=== PATIENT | male | born 1985 | race Caucasian/White ===

== ENCOUNTER 2017-05-26 18:18 | Emergency (ER) | payer MEDICAID ==
--- NOTE | 2017-05-26 18:41 | ER Document Report ---
ED Medical Screen (RME) - General Chief Complaint: Syncope Stated Complaint: FALL/VOMITING Time Seen by Provider: 05/26/17 18:30 Notes: RME DISCLOSURE I have seen this patient as part of a Rapid Medical Evaluation and, if applicable, placed any initially appropriate orders. The patient will be seen and fully evaluated, including a full history and physical exam, by a provider ( in Main ED or Fast Track) when a room becomes available. 31M here w c/o L sided OJEDA that started sometime today (pt cannot tell me as he cannot remember), worse w light and sound, has not tried anything for pain, feels "out of it and confused". Denies numbness tingling incontinence or retention fevers IV drug use. He denies alcohol and illicit drugs. He does not take blood thinners and has no prior history of aneurysms. He does not remember if he may have had any head trauma today. EXAM Lethargic appearing but arouses to verbal Pinpoint pupils Strength 5/5 with intact sensation all extremities TRAVEL OUTSIDE OF THE [place] IN LAST 30 DAYS: No - Related Data Allergies/Adverse Reactions: No Known Allergies Allergy (Verified 05/26/17 18:21) Past Medical History - Social History Frequency of alcohol use: Social Pulmonary Medical History: Denies: Hx Asthma, Hx Bronchitis, Hx Pneumonia Renal/ Medical History: Denies: Hx Peritoneal Dialysis - Immunizations Hx Diphtheria, Pertussis, Tetanus Vaccination: Yes - unsure of tetanus Physical Exam - Vital signs Vitals: Temp Pulse Resp BP Pulse Ox 97.4 F 77 16 130/76 H 90 L 05/26/17 18:26 05/26/17 18:26 05/26/17 18:26 05/26/17 18:26 05/26/17 18:26 Course - Vital Signs Vital signs: Temp Pulse Resp BP Pulse Ox 97.4 F 77 16 130/76 H 90 L 05/26/17 18:26 05/26/17 18:26 05/26/17 18:26 05/26/17 18:26 05/26/17 18:26
--- NOTE | 2017-05-26 18:58 | RADIOLOGY REPORT (SQ) ---
EXAM DESCRIPTION: CT HEAD WITHOUT COMPLETED DATE/TIME: 05/26/2017 6:45 pm REASON FOR STUDY: OJEDA syncope vomiting lethargic; eval head bleed COMPARISON: None. TECHNIQUE: Axial images acquired through the brain without intravenous contrast. Images reviewed wi th bone, brain and subdural windows. Images stored on PACS. All CT scanners at this facility use dose modulation, iterative reconstruction, and/or weight based d osing when appropriate to reduce radiation dose to as low as reasonably achievable (ALARA). [facility]: Dose Right [facility]: CareDose [facility]: Dose Right [facility]: Teradose 4D [facility]: Smart Navarik RADIATION DOSE: CT Rad equipment meets quality standard of care and radiation dose reduction techniq ues were employed. CTDIvol: 64.6 mGy. DLP: 1034 mGy-cm. mGy. LIMITATIONS: None. FINDINGS: VENTRICLES: Normal size and contour. CEREBRUM: No masses. No hemorrhage. No midline shift. No evidence for acute infarction. Normal gra y/white matter differentiation. No areas of low density in the white matter. CEREBELLUM: No masses. No hemorrhage. No alteration of density. No evidence for acute infarction. EXTRAAXIAL SPACES: No fluid collections. No masses. ORBITS AND GLOBE: No intra- or extraconal masses. Normal contour of globe without masses. CALVARIUM: No fracture. PARANASAL SINUSES: There are mild mucoperiosteal changes in some of the ethmoid air cells. SOFT TISSUES: No mass or hematoma. OTHER: No other significant finding. IMPRESSION: There is mild ethmoid disease with no acute intracranial imaging findings. EVIDENCE OF ACUTE STROKE: NO. COMMENT: Quality ID # [id number]: Final reports with documentation of one or more dose reduction techniques (e.g., Automated exposure control, adjustment of the mA and/or kV according to patient size, use of iterative reconstruction technique) TECHNICAL DOCUMENTATION: JOB ID: [id number] [email or web address] All Rights Reserved Reading location - IP/workstation name: [email or web address]
[2017-05-26] MEDS ORDERED: NORMAL SALINE 1000 ML 1,000 ML IV ONE (19:15)
[2017-05-26] MEDS ORDERED: ONDANSETRON HCL INJ/PF 4 MG/2 ML SDV IV ONE (19:15)
--- NOTE | 2017-05-26 19:17 | ER Document Report ---
ED General - General Chief Complaint: Syncope Stated Complaint: FALL/VOMITING Time Seen by Provider: 05/26/17 18:30 Notes: Patient is a 31-year-old male comes emergency department for chief complaint of possible head injury, fall, headache, and vomiting. Patient states he vomited 3 times. Patient states his brought him and told him he needed to come, he states he does not exactly remember what happened. He denies alcohol, denies any recreational drugs, denies any daily medications except for currently taking penicillin for his teeth. He states he had a bad headache when he got here but now it is almost gone, he states he just feels tired. He denies any surgeries or medical history. TRAVEL OUTSIDE OF THE [place] IN LAST 30 DAYS: No - Related Data Allergies/Adverse Reactions: No Known Allergies Allergy (Verified 05/26/17 18:21) Past Medical History - General Information source: Patient - Social History Smoking Status: Current Every Day Smoker Frequency of alcohol use: Social Family History: Reviewed & Not Pertinent Patient has suicidal ideation: No Patient has homicidal ideation: No Pulmonary Medical History: Denies: Hx Asthma, Hx Bronchitis, Hx Pneumonia Renal/ Medical History: Denies: Hx Peritoneal Dialysis - Immunizations Hx Diphtheria, Pertussis, Tetanus Vaccination: Yes - unsure of tetanus Review of Systems - Review of Systems Constitutional: See HPI EENT: No symptoms reported Cardiovascular: No symptoms reported Respiratory: No symptoms reported Gastrointestinal: See HPI Genitourinary: No symptoms reported Male Genitourinary: No symptoms reported Musculoskeletal: No symptoms reported Skin: No symptoms reported Hematologic/Lymphatic: No symptoms reported Neurological/Psychological: No symptoms reported Physical Exam - Vital signs Vitals: Temp Pulse Resp BP Pulse Ox 97.4 F 77 16 130/76 H 90 L 05/26/17 18:26 05/26/17 18:26 05/26/17 18:26 05/26/17 18:26 05/26/17 18:26 - General General appearance: Lethargic In distress: None - HEENT Head: Normocephalic, Atraumatic Eyes: Normal Conjunctiva: Normal Extraocular movements intact: Yes Eyelashes: Normal Pupils: PERRL Nasal: Normal Mouth/Lips: Normal Mucous membranes: Normal Pharynx: Normal Neck: Normal - Respiratory Respiratory status: No respiratory distress. No: Labored, Tachypnea Breath sounds: Normal. No: Decreased air movement, Wheezing - Cardiovascular Rhythm: Regular. No: Tachycardia Heart sounds: Normal auscultation, S1 appreciated, S2 appreciated - Abdominal Inspection: Normal Tenderness: Nontender. No: Tender - Back Back: Normal, Nontender - Extremities General upper extremity: Other - Old track patel on the arms, no obvious new areas. Normal upper extremity exam otherwise General lower extremity: Normal inspection, Nontender, Normal strength, Normal temperature. No: Edema - Neurological Neuro grossly intact: Yes Cognition: Normal Orientation: Disoriented to events. 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 No: Aggressive, Agitated, Angry, Anxious - Skin Skin Temperature: Warm Skin Moisture: Dry Skin Color: Normal Course - Re-evaluation Re-evalutation: 05/26/17 came to bedside. She states that she heard patient fall in the next room, she went and found him on the floor she states he was still responding but he was slurring his words and difficult to understand and she became concerned and called EMS. She denies any vomiting or noting any other abnormalities. Vital signs unremarkable including no fever, tachycardia, hypotension, or hypoxia. Rechecked initial hypoxia which was stated to be 90%, this is 90% on room air. CAT scan of the head is unremarkable. I attempted to place an IV because nursing staff is having difficulty, however patient has not cooperative, he complains and moves making IV placement difficult although I was able to obtain blood. Giving Zofran and p.o. fluids instead. 05/26/17 21:15 Despite multiple attempts at blood chemistry hemolyzed. CBC was obtained, shows leukocytosis with elevation of neutrophils but no bandemia. No anemia. Patient currently on penicillin for dental infection but I do not see an abscess on examination, no Jairo's, patient is actually alert and walking around the room now, he states feels much better after the Zofran, he has been drinking fluids, he states he feels great he wants to go home. His color is better, he is more alert, he ambulates without any difficulty, he has no neurological deficits, the CAT scan of the head is normal. I did discuss lumbar puncture because of leukocytosis, headache, passing out, however this was declined. Patient states he does not have a headache anymore. 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 Presentation is suggestive of opiate abuse, although patient denies this patient was reminded that this is potentially life-threatening and he should avoid opiates. Patient not homicidal or suicidal. Because CAT scan of the head, chest x-ray, monitoring does not show any concerning a normality's, vital signs are normal, patient will be discharged home on his request at this time. I did discuss return precautions in detail, primary care follow-up, and return precautions. Patient and at bedside state understanding and agreement. - Vital Signs Vital signs: Temp Pulse Resp BP Pulse Ox 97.4 F 85 16 130/76 H 98 05/26/17 18:26 05/26/17 18:35 05/26/17 18:26 05/26/17 18:26 05/26/17 18:35 - Laboratory Result Diagrams: 05/26/17 19:50 05/26/17 19:50 Laboratory results interpreted by me: 05/26/17 19:50 WBC 19.2 H Plt Count 453 H Seg Neuts % (Manual) 90 H Lymphocytes % (Manual) 5 L Abs Neuts (Manual) 17.3 H Discharge - Discharge Clinical Impression: Episode of syncope Qualifiers: Syncope type: unspecified Qualified Code(s): R55 - Syncope and collapse Condition: Stable Disposition: HOME, SELF-CARE Additional Instructions: The CAT scan of your head, chest x-ray, and your evaluation do not show any concerning abnormalities. You have declined additional workup. The exact cause of your episode of syncope is uncertain at this time. Stay well-nourished and well-hydrated, avoid recreational drugs, and follow-up closely with primary care for additional evaluation. See referral. Return if you worsen in anyway including returned or severe headache, confusion , 100.4 or greater, or any other concerning or worsening symptoms. Forms: Return to Work Referrals: KENROY HOLLY MD [ACTIVE STAFF] - Follow up in 3-5 days
[2017-05-26] MEDS ORDERED: ONDANSETRON 4 MG TAB.RAPDIS PO ONE (20:02)
[2017-05-26 20:15] LABS: MEAN CORPUSCULAR HEMOGLOBIN 30.5 pg (27.0-33.4); MEAN CORPUSCULAR HGB CONC 35.7 g/dL (32.0-36.0); MEAN CORPUSCULAR VOLUME 86 fl (80-97); PLATELET COUNT 453 10^3/uL (150-450); RED CELL DISTRIBUTION WIDTH 13.4 % (11.5-14.0); WHITE BLOOD COUNT 19.2 10^3/uL (4.0-10.5)
[2017-05-26 20:35] LABS: ABSOLUTE NEUTROPHILS# (MANUAL) 17.3 10^3/uL (1.7-8.2); BASOPHILS % (MANUAL) 0 % (0-2); EOSINOPHILS % (MANUAL) 0 % (0-6); LYMPHOCYTES % (MANUAL) 5 % (13-45); MONOCYTES % (MANUAL) 5 % (3-13); SEGMENTED NEUTROPHILS % (MAN) 90 % (42-78); TOTAL CELLS COUNTED 100; TOXIC GRANULATION SLIGHT
[2017-05-26 20:36] LABS: PLATELET COMMENT INCREASED
--- NOTE | 2017-05-26 21:14 | RADIOLOGY REPORT (SQ) ---
EXAM DESCRIPTION: CHEST SINGLE VIEW COMPLETED DATE/TIME: 05/26/2017 8:59 pm REASON FOR STUDY: initial hypoxia, leukocytosis COMPARISON: 03/23/2013 EXAM PARAMETERS: NUMBER OF VIEWS: One view. TECHNIQUE: Single frontal radiographic view of the chest acquired. RADIATION DOSE: NA LIMITATIONS: None. FINDINGS: LUNGS AND PLEURA: No acute opacities, masses or pneumothorax. No pleural effusion. MEDIASTINUM AND HILAR STRUCTURES: No masses. Contour normal. HEART AND VASCULAR STRUCTURES: Heart normal in size. Normal vasculature. BONES: No acute findings. HARDWARE: None in the chest. OTHER: No other significant finding. IMPRESSION: NO ACUTE RADIOGRAPHIC FINDING IN THE CHEST. TECHNICAL DOCUMENTATION: JOB ID: [id number] [email or web address] All Rights Reserved Reading location - IP/workstation name: [email or web address]
[2017-05-26] MEDS ORDERED: ONDANSETRON ODT 4 MG TAB (6 TAB/ER DISP) PO PRN (21:21)
[2017-05-26 21:34] VITALS: BP 123/85
== END 2017-05-26 21:38 | disposition home or self-care (01) ==
LOC: ER 18:18
DX: R55 Syncope and collapse (principal); R11.10 Vomiting, unspecified; R51 Headache; W19.XXXA Unspecified fall, initial encounter; F17.200 Nicotine dependence, unspecified, uncomplicated
CPT/HCPCS: 99284; 36415; 85025; 71045; 70450; S0119

== ENCOUNTER 2018-11-22 21:02 | Emergency (ER) | payer MEDICAID ==
[2018-11-22] MEDS ORDERED: LIDOCAINE 1%/EPINEPHRINE INJ 20 ML VIAL INJ ONE (21:14)
[2018-11-22 21:15] VITALS: BP 116/91
--- NOTE | 2018-11-22 21:24 | ER Document Report ---
ED Skin Rash/Insect Bite/Abscs - General Stated Complaint: POSSIBLE RASH Time Seen by Provider: 11/22/18 21:04 Primary Care Provider: STONEY BOCANEGRA DO [NO LOCAL MD] - Follow up as needed Notes: Patient is a 32-year-old male that comes emergency department for chief complaint of an abscess over the top of the left hand. He states that he noticed this almost a week ago, it became larger, he has been draining intermittently but it has not resolved. He denies spreading redness, fever/chills, nausea/vomiting. He does admit to heroin abuse. Patient also states that he has a lot of bumps on his neck that had hens like pimples at first and he scratched on these off but these have not resolved either. He denies any other complaints including chest pain, shortness of breath. He denies any prescribed daily medications or diagnosed medical problems. TRAVEL OUTSIDE OF THE [place] IN LAST 30 DAYS: No - Related Data Allergies/Adverse Reactions: No Known Allergies Allergy (Verified 11/22/18 21:41) Past Medical History - General Information source: Patient - Social History Smoking Status: Current Every Day Smoker Drug Abuse: Heroin Lives with: Alone Family History: Reviewed & Not Pertinent Pulmonary Medical History: Denies: Hx Asthma, Hx Bronchitis, Hx Pneumonia Renal/ Medical History: Denies: Hx Peritoneal Dialysis - Immunizations Hx Diphtheria, Pertussis, Tetanus Vaccination: Yes - unsure of tetanus Review of Systems - Review of Systems Constitutional: No symptoms reported EENT: No symptoms reported Cardiovascular: No symptoms reported Respiratory: No symptoms reported Gastrointestinal: No symptoms reported Genitourinary: No symptoms reported Male Genitourinary: No symptoms reported Musculoskeletal: No symptoms reported Skin: See HPI Hematologic/Lymphatic: No symptoms reported Neurological/Psychological: No symptoms reported Physical Exam - Vital signs Vitals: Temp Pulse Resp BP Pulse Ox 98.7 F 96 16 116/91 H 100 11/22/18 21:11/22/18 21:11/22/18 21:11/22/18 21:11/22/18 21:09 - Notes Notes: GENERAL: Alert, interacts well. No acute distress. HEAD: Normocephalic, atraumatic. EYES: Pupils equal, round, and reactive to light. Extraocular movements intact. ENT: Oral mucosa moist, tongue midline. Oropharynx unremarkable. Airway patent. NECK: Full range of motion. Supple. Trachea midline. LUNGS: Clear to auscultation bilaterally, no wheezes, rales, or rhonchi. No respiratory distress. HEART: Regular rate and rhythm. No murmur ABDOMEN: Soft, non-tender. Non-distended. EXTREMITIES: Dorsal left hand with an abscess just past the MCP joints of the fourth and fifth digits. This is swollen, indurated, fluctuant, and there is small amount of necrotic tissue over the top. There is some minimal surrounding erythema, there is no significant swelling of the hand, there is normal range of motion and strength in all fingers, wrist, elbow. There is no swelling of the fingers. BACK: no cervical, thoracic, lumbar midline tenderness. No saddle anesthesia, normal distal neurovascular exam. Moves all extremities in full range of motion. NEUROLOGICAL: Alert and oriented x3. Normal speech. Cranial nerves II through XII grossly intact. PSYCH: Normal affect, normal mood. SKIN: Excoriated papules over the anterior and sides of the neck with scattered with mild surrounding erythema but no induration, fluctuance, current bleeding, current drainage. Course - Re-evaluation Re-evalutation: Patient is talkative, well-appearing, alert, does not appear to be on the influence of anything at this time. He is afebrile, not tachycardic. Patient is also very forthcoming about the Herion he has used, he was again counseled on the extreme risk of morbidity and mortality in regards to this. He has an isolated abscess on the dorsum of the left hand but he does not have notable surrounding cellulitis or swelling of the hand. Range of motion of the hand is normal and there is no extension into the fingers. Skin rash around the neck appears to be excoriated pimples with development of mild cellulitis surrounding this. No induration or fluctuance in these areas. X-ray of the hand does not show retained foreign body or abnormality. The hand only has an isolated superficial abscess and there is no spreading cellulitis, no evidence of involvement of the hand or deep tendons, there is no cellulitis of the hand, there is no spreading up the hand or arm. As result incision and drainage of the area was performed, area was cleaned thoroughly, patient placed on antibiotics, patient given follow-up instructions and strict return precautions which were discussed in detail. Patient states understanding and agreement. Stable time of discharge. - Vital Signs Vital signs: Temp Pulse Resp BP Pulse Ox 98.7 F 96 16 116/91 H 100 11/22/18 21:11/22/18 21:11/22/18 21:11/22/18 21:11/22/18 21:09 Procedures - Incision and Drainage left dorsal hand Type: Single Anesthetic type: 1% Lidocaine w/epi mL's of anesthetic: 5 Blade size: 11 I&D procedure: Shurclens applied, Sterile dressing applied Incision Method: Incision made by scalpel Amount/type of drainage: Small amount of necrotic tissue removed, small amount of pus Discharge - Discharge Clinical Impression: Hand abscess Cellulitis Qualifiers: Site of cellulitis: neck Qualified Code(s): L03.221 - Cellulitis of neck Condition: Stable Disposition: HOME, SELF-CARE Additional Instructions: The abscess over the left hand has been drained. Keep clean, clean with soap and water, this should heal with time. Take the antibiotic as prescribed to completion. Try to avoid scratching the areas of, this should improve with the antibiotics as well. Follow-up with primary care. Avoid using as needed as this would cause any complications including . Return if you worsen including developing swelling or redness at the left hand/arm, fever/chills, or any other concerning or worsening symptoms. Prescriptions: Sulfamethoxazole/Trimethoprim [Bactrim Ds Tablet] 1 each PO BID 3 Days #6 tablet Sulfamethoxazole/Trimethoprim [Bactrim Ds Tablet] 1 each PO BID #14 tablet Referrals: STONEY BOCANEGRA DO [NO LOCAL MD] - Follow up as needed
[2018-11-22] MEDS ORDERED: SULFAMETHOXAZOLE/TRIMETHOPRIM 800-160 MG TABLET PO ONE (21:45)
[2018-11-22] MEDS ORDERED: HYDROCODONE/ACETAMINOPHEN 5-325 MG (6 TAB/ER DISP) PO PRN (21:49)
--- NOTE | 2018-11-22 22:02 | RADIOLOGY REPORT (SQ) ---
Left hand three view on 11/22/2018 at 9:27 PM CLINICAL INDICATION: Swelling, abscess, question foreign body COMPARISON: None FINDINGS: Ulnar minus variant is noted. There is no radiopaque foreign body. There are no fractures. Visualized joints are well aligned. No other bony abnormality is noted. IMPRESSION: No acute abnormality.
== END 2018-11-22 22:22 | disposition home or self-care (01) ==
LOC: ER 21:02
PROC: 0H9GXZZ Drainage of Left Hand Skin, External Approach (ICD-10-PCS; principal; 2018-11-22)
DX: L02.512 Cutaneous abscess of left hand (principal); L03.221 Cellulitis of neck; R21 Rash and other nonspecific skin eruption; F17.200 Nicotine dependence, unspecified, uncomplicated
CPT/HCPCS: 99283; 73130; 10060; J3490 ×2